=== PATIENT | female | born 2000 | race Caucasian/White ===

== ENCOUNTER 2023-05-11 13:00 | Outpatient (CLI) | payer BC | END 2023-05-11 13:01 | disposition home or self-care (01) | LOC: CSHULT 13:00 | PROVIDERS: ATTEND Internal Medicine | DX: M24.80 Other specific joint derangements of unspecified joint, not elsewhere classified (principal); Z82.69 Family history of other diseases of the musculoskeletal system and connective tissue; I34.0 Nonrheumatic mitral (valve) insufficiency | CPT/HCPCS: 76775; 93306 ==

== ENCOUNTER 2023-09-07 18:41 | Emergency (ER) | payer OTHER, BC ==
[2023-09-07] MEDS ORDERED: HYDROcodone/Acetaminophen 5/325 mg Tablet ONE (19:35)
== END 2023-09-07 20:01 | disposition home or self-care (01) ==
LOC: CSHERS 18:41
DX: S93.491A Sprain of other ligament of right ankle, initial encounter (principal); W01.0XXA Fall on same level from slipping, tripping and stumbling without subsequent striking against object, initial encounter

== ENCOUNTER 2023-11-04 16:18 | Emergency (ER) | payer BC ==
[~2023-11-04 16:18] MED LIST: Iopamidol 300 61% 100 ML VIAL FS ONE
[2023-11-04] MEDS ORDERED: Morphine 4 MG/ML VIAL ONE ×2 (17:13→19:07)
[2023-11-04 17:14] LABS: #Basophils 0.1 10x3/uL (0.0-0.2); #Monocytes 0.3 10x3/uL (0.0-1.1); #Neutrophils 7.1 10x3/uL (1.5-8.4); %Basophils 0.6 % (0.0-2.0); %Lymphocytes 16.5 % (18.0-47.0); %Monocytes 3.6 % (0.0-10.0); Hemoglobin 14.3 g/dL (12.0-15.5); Mean Corpuscular Hemoglobin 26.8 pg (27.0-33.0); Mean Corpuscular Volume 78.7 fl (81.6-98.3); Mean Platelet Volume 8.4 fl (7.4-10.4); Platelet Count 359 10x3/uL (150-450); RBC Distribution Width 12.8 % (11.5-14.5); Red Blood Cell (RBC) Count 5.34 10x6/uL (3.90-5.03)
[2023-11-04] MEDS ORDERED: Ondansetron PF 4 MG/2 ML Vial ONE ×2 (17:14→19:07)
[2023-11-04 17:22] LABS: BHCG - Serum Negative (NEGATIVE); Pregs Control Background? CLEAR/WHITE (CLR/WHITE); Pregs Control Bar Appear? YES (CONTROL BAR)
[2023-11-04 17:27] LABS: ALT (SGPT) 15 U/L (8-55); AST (SGOT) 13 U/L (5-34); Albumin 4.6 g/dL (3.5-5.0); Alkaline Phosphatase 67 U/L (40-100); Anion Gap 15 mmol/L (10-20); BUN (Urea Nitrogen) 8 mg/dL (7.0-18.7); Bilirubin, Total 0.7 mg/dL (0.2-1.2); Calc. Creatinine Clearance 0 mL/min (70-130); Calcium 9.1 mg/dL (7.8-10.44); Carbon Dioxide 23 mmol/L (22-29); Chloride 102 mmol/L (98-107); Estimated GFR 102; Globulin 3.6 g/dL (2.4-3.5); Glucose 109 mg/dL (70-105); Lipase 18 U/L (8-78); Potassium 3.2 mmol/L (3.5-5.1); Protein, Total 8.2 g/dL (6.0-8.3); Sodium 137 mmol/L (136-145)
[2023-11-04] MEDS ORDERED: Potassium Chloride 20 MEQ TAB ONE (17:46)
[2023-11-04 20:00] LABS: Bilirubin Neg (Negative); Blood, Urine Negative (Negative); Clarity Slightly Cloudy (Clear); Glucose, Urine (Dipstick) Normal (Negative); Ketone, Urine 50 mg/dL (Negative); Leukocyte Negative (Negative); Nitrite Negative (Negative); Protein, Urine (Dipstick) Negative (Neg-Trace); Specific Gravity, Urine 1.015 (1.005-1.030); Urobilinogen Normal mg/dL (Less than 2)
[2023-11-04 20:40] LABS: CAUTI Indications for Culture Pelvic or flank pain; RBC/HPF None Seen HPF (0-3); Squamous Epithelial None Seen HPF (0-3); WBC/HPF None Seen HPF (0-3)
[2023-11-04 20:42] LABS: Urine Culture Reflex No No
== END 2023-11-04 21:15 | disposition home or self-care (01) ==
LOC: CSHERS 16:18
DX: N83.202 Unspecified ovarian cyst, left side (principal); G43.909 Migraine, unspecified, not intractable, without status migrainosus; Z55.6 Problems related to health literacy
CPT/HCPCS: 36416; 74177; 76856; 80053; 81001; 83690; 84703; 85025; 93976; 96361; 96374; 96375; 96376; J2270; J2405; Q9967